=== PATIENT | male | born 1960 | race Caucasian/White ===

== ENCOUNTER 2017-12-22 03:57 | Emergency (ER) | payer BC ==
[2017-12-22] MEDS ORDERED: Ketorolac INJ* 30 MG/ML 1 ML VIAL IV PUSH ONE (04:12)
[2017-12-22] MEDS ORDERED: Aspirin 81 mg CHEW TAB* 81 MG TAB.CHEW PO ONE (04:12)
[2017-12-22] MEDS ORDERED: Ondansetron INJ* 2 MG/ML VIAL IV ONE (04:30)
[2017-12-22] MEDS ORDERED: Morphine INJ* 4 MG/ML 1 ML SYRINGE (NEW SYRINGE VERSION) IV ONE (04:30)
[2017-12-22 04:34] LABS: ABS Basophils 0 10^3/ul (0-0.2); ABS Eosinophils 0.4 10^3/ul (0-0.6); ABS Lymphocytes 2.9 10^3/ul (1.0-4.8); ABS Monocytes 0.4 10^3/ul (0-0.8); ABS Nucleated RBC 0 10^3/ul; Eosinophil % 6.7 % (0-6); Hematocrit 44 % (42-52); Hemoglobin 14.7 g/dl (14.0-18.0); Lymphocyte % 51.5 % (25-47); Mean Corpuscular HGB Conc 34 g/dl (31-36); Mean Corpuscular Hemoglobin 30 pg (27-31); Mean Corpuscular Volume 89 fL (80-94); Mean Platelet Volume 7.4 um3 (7.4-10.4); Nucleated Red Blood Cells % 0.1; Platelet Count 192 10^3/ul (150-450); Red Blood Count 4.95 10^6/ul (4.00-5.40); Red Cell Distribution Width 13 % (10.5-15); White Blood Count 5.7 10^3/ul (3.5-10.8)
[2017-12-22] MEDS ORDERED: fentaNYL* 50 MCG/ML 2 ML VIAL (100 MCG VIAL) ONE (04:47)
[2017-12-22] MEDS ORDERED: fentaNYL* 50 MCG/ML 2 ML VIAL (100 MCG VIAL) IV SLOW PU ONE ×2 (04:47→05:55)
[2017-12-22 04:51] LABS: EGFR Non-African American 72.3 (>60)
[2017-12-22 04:52] LABS: INR 0.89 (0.77-1.02)
[2017-12-22] MEDS ORDERED: Iohexol 350* (CONTRAST) 500 ML MDV IV ONE (05:04)
--- NOTE | 2017-12-22 05:12 | ED ---
HPI Chest Pain - HPI Summary HPI Summary: A 57 y/o Male presents to the ED c/o CP. He woke up in pain at around 3:30. He had difficulty walking to his car feeling SOB. His pain is currently better but is still present. Standing up alleviates his pain. He denies burping, coughing or fever. He leads and active lifestyle but has a FHx of IA. The patient does not take any medication. While in the room his HR was 40bpm. - History of Current Complaint Chief Complaint: EDChestWallPain Time Seen by Provider: 12/22/17 04:03 Hx Obtained From: Patient, Family/Negative [place] Onset/Duration: Started Hours Ago, Still Present Timing: Constant, Lasting Minutes Initial Severity: Moderate Current Severity: Moderate Pain Intensity: 8 Pain Scale Used: 0-10 Numeric Alleviating Factor(s): Position - Allergy/Home Medications Allergies/Adverse Reactions: Allergies Allergy/AdvReac Type Severity Reaction Status Date / Time No Known Allergies Allergy Verified 12/22/17 04:17 PMH/Surg Hx/FS Hx/Imm Hx Endocrine/Hematology History: Denies: Hx Diabetes Cardiovascular History: Denies: Hx Hypertension History: Denies: Hx Renal Disease EENT History: Denies: Hx Deafness Infectious Disease History: No Infectious Disease History: Denies: Traveled Outside the [place] in Last 30 Days - Family History Known Family History: Positive: Cardiac Disease Negative: Hypertension, Diabetes - Social History Alcohol Use: None Substance Use Type: Reports: None Smoking Status (MU): Never Smoked Tobacco Review of Systems Negative: Fever Positive: Chest Pain Positive: Shortness Of Breath. Negative: Cough Gastrointestinal: Negative - burping All Other Systems Reviewed And Are Negative: Yes Physical Exam - Summary Physical Exam Summary: VITAL SIGNS: Reviewed. GENERAL: Patient is a well-developed and nourished MALE who is lying comfortable in the stretcher. Patient is not in any acute respiratory distress. HEAD AND FACE: No signs of trauma. No ecchymosis, hematomas or skull depressions. No sinus tenderness. EYES: PERRLA, EOMI x 2, No injected conjunctiva, no nystagmus. EARS: Hearing grossly intact. Ear canals and tympanic membranes are within normal limits. MOUTH: Oropharynx within normal limits. NECK: Supple, trachea is midline, no adenopathy, no JVD, no carotid bruit, no c- spine tenderness, neck with full ROM. CHEST: Symmetric, no tenderness at palpation LUNGS: Clear to auscultation bilaterally. No wheezing or crackles. CVS: Regular rate and rhythm, S1 and S2 present, no murmurs or gallops appreciated. ABDOMEN: Soft, non-tender. No signs of distention. No rebound no guarding, and no masses palpated. Bowel sounds are normal. EXTREMITIES: FROM in all major joints, no edema, no cyanosis or clubbing. NEURO: Alert and oriented x 3. No acute neurological deficits. Speech is normal and follows commands. SKIN: Dry and warm Triage Information Reviewed: Yes Vital Signs On Initial Exam: Initial Vitals Temp Pulse Resp BP Pulse Ox 97.8 F 40 22 135/76 100 12/22/17 03:58 12/22/17 03:58 12/22/17 03:58 12/22/17 03:58 12/22/17 03:58 Vital Signs Reviewed: Yes Diagnostics - Vital Signs Vital Signs Temp Pulse Resp BP Pulse Ox 12/22/17 05:00 44 12 96 12/22/17 04:52 43 16 114/71 98 12/22/17 04:50 20 12/22/17 04:34 20 12/22/17 04:25 98 12/22/17 04:08 52 16 138/79 99 12/22/17 04:06 44 99 12/22/17 03:58 97.8 F 40 22 135/76 100 - Laboratory Lab Results: Lab Results 12/22/17 12/22/17 12/22/17 Range/Units 04:24 04:24 04:24 WBC 5.7 (3.5-10.8) 10^3/ul RBC 4.95 (4.00-5.40) 10^6/ul Hgb 14.7 (14.0-18.0) g/dl Hct 44 (42-52) % MCV 89 (80-94) fL MCH 30 (27-31) pg MCHC 34 (31-36) g/dl RDW 13 (10.5-15) % Plt Count 192 (150-450) 10^3/ul MPV 7.4 (7.4-10.4) um3 Neut % (Auto) 34.7 L (38-83) % Lymph % (Auto) 51.5 H (25-47) % [place] % (Auto) 6.8 (0-7) % Eos % (Auto) 6.7 H (0-6) % Baso % (Auto) 0.3 (0-2) % Absolute Neuts (auto) 2.0 (1.5-7.7) 10^3/ul Absolute Lymphs (auto) 2.9 (1.0-4.8) 10^3/ul Absolute Monos (auto) 0.4 (0-0.8) 10^3/ul Absolute Eos (auto) 0.4 (0-0.6) 10^3/ul Absolute Basos (auto) 0 (0-0.2) 10^3/ul Absolute Nucleated RBC 0 10^3/ul Nucleated RBC % 0.1 INR (Anticoag Therapy) (0.77-1.02) APTT (26.0-36.3) seconds D-Dimer, Quantitative (Less Than 230) ng/mL Sodium 140 (135-145) mmol/L Potassium 3.9 (3.5-5.0) mmol/L Chloride 104 (101-111) mmol/L Carbon Dioxide 30 (22-32) mmol/L Anion Gap 6 (2-11) mmol/L BUN 19 (6-24) mg/dL Creatinine 1.05 (0.67-1.17) mg/dL Est GFR ( Amer) 87.5 (>60) Est GFR (Non-Af Amer) 72.3 (>60) BUN/Creatinine Ratio 18.1 (8-20) Glucose 133 H (70-100) mg/dL Lactic Acid 0.8 (0.5-2.0) mmol/L Calcium 8.9 (8.6-10.3) mg/dL Magnesium 2.1 (1.9-2.7) mg/dL Total Bilirubin 0.40 (0.2-1.0) mg/dL AST 21 (13-39) U/L ALT 18 (7-52) U/L Alkaline Phosphatase 55 (34-104) U/L Total Creatine Kinase 173 (10-223) U/L CK-MB (CK-2) 1.7 (0.6-6.3) ng/mL Troponin I 0.00 (<0.04) ng/mL C-Reactive Protein Pending B-Natriuretic Peptide ( - 100) pg/mL Total Protein 6.3 L (6.4-8.9) g/dL Albumin 3.8 (3.2-5.2) g/dL Globulin 2.5 (2-4) g/dL Albumin/Globulin Ratio 1.5 (1-3) Amylase Pending Lipase Pending 12/22/17 12/22/17 Range/Units 04:24 04:24 WBC (3.5-10.8) 10^3/ul RBC (4.00-5.40) 10^6/ul Hgb (14.0-18.0) g/dl Hct (42-52) % MCV (80-94) fL MCH (27-31) pg MCHC (31-36) g/dl RDW (10.5-15) % Plt Count (150-450) 10^3/ul MPV (7.4-10.4) um3 Neut % (Auto) (38-83) % Lymph % (Auto) (25-47) % [place] % (Auto) (0-7) % Eos % (Auto) (0-6) % Baso % (Auto) (0-2) % Absolute Neuts (auto) (1.5-7.7) 10^3/ul Absolute Lymphs (auto) (1.0-4.8) 10^3/ul Absolute Monos (auto) (0-0.8) 10^3/ul Absolute Eos (auto) (0-0.6) 10^3/ul Absolute Basos (auto) (0-0.2) 10^3/ul Absolute Nucleated RBC 10^3/ul Nucleated RBC % INR (Anticoag Therapy) 0.89 (0.77-1.02) APTT 27.9 (26.0-36.3) seconds D-Dimer, Quantitative < 200 (Less Than 230) ng/mL Sodium (135-145) mmol/L Potassium (3.5-5.0) mmol/L Chloride (101-111) mmol/L Carbon Dioxide (22-32) mmol/L Anion Gap (2-11) mmol/L BUN (6-24) mg/dL Creatinine (0.67-1.17) mg/dL Est GFR ( Amer) (>60) Est GFR (Non-Af Amer) (>60) BUN/Creatinine Ratio (8-20) Glucose (70-100) mg/dL Lactic Acid (0.5-2.0) mmol/L Calcium (8.6-10.3) mg/dL Magnesium (1.9-2.7) mg/dL Total Bilirubin (0.2-1.0) mg/dL AST (13-39) U/L ALT (7-52) U/L Alkaline Phosphatase (34-104) U/L Total Creatine Kinase (10-223) U/L CK-MB (CK-2) (0.6-6.3) ng/mL Troponin I (<0.04) ng/mL C-Reactive Protein B-Natriuretic Peptide 21 ( - 100) pg/mL Total Protein (6.4-8.9) g/dL Albumin (3.2-5.2) g/dL Globulin (2-4) g/dL Albumin/Globulin Ratio (1-3) Amylase Lipase Result Diagrams: 12/22/17 04:24 12/22/17 04:24 Lab Statement: Any lab studies that have been ordered have been reviewed, and results considered in the medical decision making process. - Radiology CXR Xray Interpretation: Positive (See Comments) Radiology Interpretation Completed By: ED Physician - Small pleural effusion on the left side. Pending official report. - EKG 4:02 Cardiac Rate: Bradycardia - 40 bpm EKG Rhythm: Sinus Bradycardia ST Segment: Normal EKG Interpretation: Normal axis. Normal interval. No ischemic changes. Re-Evaluation - Re-Evaluation First Eval Re-Evaluation Time: 04:47 Change: Worse Comment: Tenderness from LUQ to LLQ Chest Pain Course/Dx - Course Course Of Treatment: A 57 y/o Male presents to the ED c/o CP. He woke up in pain at around 3:30. He had difficulty walking to his car feeling SOB. His pain is currently better but is still present. Standing up alleviates his pain. He denies burping, coughing or fever. He leads and active lifestyle but has a FHx of IA. The patient does not take any medication. EKG revealed sinus bradycardia at 40 bpm. The CXR revealed a small pleural effusion on the left side. Pt will be signed out to Dr. Ahn at shift change. Has a final diagnosis of CP and abd pain. Pending CTA and troponin. - Diagnoses Provider Diagnoses: Chest pain, Abdominal pain Discharge - Sign-Out/Discharge Documenting (check all that apply): Sign-Out Patient Signing out patient TO: Marek Ahn - Discharge Plan Referrals: Chandu Wilson MD [Primary Care Provider] - - Attestation Statements Document Initiated by Scribe: Yes Documenting Scribe: Ancelmo Hurley Provider For Whom Scribe is Documenting (Include Credential): Nery Barrera MD Scribe Attestation: IAncelmo, scribed for Nery Barrera MD on 12/22/17 at 0644.
[2017-12-22 06:54] LABS: Urine Appearance Cloudy; Urine Blood Negative (Negative); Urine Color Yellow; Urine Ketones Negative (Negative); Urine Protein Negative (Negative); Urine Specific Gravity 1.045 (1.010-1.030); Urine Urobilinogen Negative (Negative)
--- NOTE | 2017-12-22 07:02 | RAD ---
EXAM: CT Angiography Chest With Intravenous Contrast CLINICAL HISTORY: 57 years old, male; Pain; Chest wall pain; Abdominal pain; Localized; Left upper quadrant (luq); Additional info: Pe/abd pain TECHNIQUE: Axial computed tomographic angiography images of the chest with intravenous contrast using pulmonary embolism protocol. All CT scans at this facility use at least one of these dose optimization techniques: automated exposure control; mA and/or kV adjustment per patient size (includes targeted exams where dose is matched to clinical indication); or iterative reconstruction. MIP reconstructed images were created and reviewed. Coronal and sagittal reformatted images were created and reviewed. CONTRAST: 100 mL of OMNI 350 administered intravenously. COMPARISON: No relevant prior studies available. FINDINGS: Pulmonary arteries: No acute pulmonary embolic disease. Aorta: No acute findings. No thoracic aortic aneurysm. Lungs: No bony consolidation. Linear opacities located in the dependent portions of lung which may resent areas of atelectasis or scarring. Pleural space: No pneumothorax or pleural effusion. Heart: The heart is of normal size. No pericardial thickening or effusion. No evidence of right heart strain. Bones/joints: No evidence of a thoracic aneurysm or dissection. Thoracic cage is intact. Spondylotic changes of the thoracic spine. No evidence of fracture or dislocation. Soft tissues: Unremarkable. Lymph nodes: No mediastinal or hilar adenopathy. IMPRESSION: No acute findings. EXAM: CT Angiography Chest With Intravenous Contrast CT Angiography Abdomen and Pelvis With Intravenous Contrast CLINICAL HISTORY: 57 years old, male; Pain; Chest wall pain; Abdominal pain; Localized; Left upper quadrant (luq); Additional info: Pe/abd pain TECHNIQUE: Axial computed tomographic angiography images of the chest, abdomen and pelvis with intravenous contrast using CT angiography protocol. All CT scans at this facility use at least one of these dose optimization techniques: automated exposure control; mA and/or kV adjustment per patient size (includes targeted exams where dose is matched to clinical indication); or iterative reconstruction. MIP reconstructed images were created and reviewed. Coronal and sagittal reformatted images were created and reviewed. CONTRAST: 100 mL of OMNI 350 administered intravenously. 100 mL of OMNI 350 administered intravenously. COMPARISON: No relevant prior studies available. FINDINGS: VASCULATURE: Aorta: Calcification of the wall of the abdominal aorta and iliac arteries. No aneurysmal dilatation. No dissection. Pulmonary arteries: Unremarkable as visualized. No pulmonary embolism is identified. Great vessels of aortic arch: No acute findings. No dissection. No arterial occlusion or significant stenosis. Celiac trunk and mesenteric arteries: No acute findings. No occlusion or significant stenosis. Renal arteries: No acute findings. No occlusion or significant stenosis. Iliac arteries: See above. CHEST: Lungs: Unremarkable. No mass. No consolidation. Pleural space: Unremarkable. No significant effusion. No pneumothorax. Heart: Unremarkable. No cardiomegaly. No significant pericardial effusion. ABDOMEN: Liver: The liver is of normal size. Small focal hypodensities scattered throughout the right and left lobe liver. Largest lesion is in the left lobe of liver this measures approximately 1.2 in diameter the density is approximately 6 ounces still demonstrated this most likely represents a cyst. The other smaller focal hyperdensities probably represents a similar process. Gallbladder and bile ducts: Unremarkable. No calcified stones. No ductal dilation. Pancreas: Unremarkable. No ductal dilation. No mass. Spleen: The spleen is of normal size and appearance. Adrenals: The adrenal glands are normal. Kidneys and ureters: Kidneys are of normal size. No hydronephrosis. Small renal cortical cysts involving the right kidney. This measures approximate 8 mm in greatest dimension. No solid mass. Stomach and bowel: No bowel obstruction. No abnormal bowel wall thickening. PELVIS: Appendix: No findings to suggest acute appendicitis. Bladder: Unremarkable. No mass. Reproductive: Unremarkable as visualized. CHEST, ABDOMEN and PELVIS: Intraperitoneal space: Unremarkable. No significant fluid collection. No free air. Bones/joints: No acute fracture. No dislocation. Soft tissues: Unremarkable. Lymph nodes: Unremarkable. No enlarged lymph nodes. IMPRESSION: No acute findings. To contact [facility] with a general question: Operations Center - [phone] For direct physician to physician contact: Physician Hotline - [phone] [facility] ([facility] Facility ID #[id number])
--- NOTE | 2017-12-22 07:15 | ED ---
Progress - Progress Note Progress Note: This pt was signed out by Dr. Barrera at shift change, pending disposition, awaiting CTA chest/abdomen/pelvis and second troponin. CTA Chest/Abdomen/Pelvis, as read by radiologist IMPRESSION: No acute findings. Dr. Ahn has reviewed this report. Re-Evaluation - Re-Evaluation First Eval Re-Evaluation Time: 07:57 Comment: I discussed CTA and lab results with pt. He will be discharged home. Course/Dx - Course Course Of Treatment: This patient is a 57-year-old male who was signed out from Dr. Barrera the previous ER attending. He reports that the patient came in with left-sided chest pain and left upper quadrant pain. Blood test results without any significant abnormality except for glucose of 133, total protein 6.3, troponin 0.00, urinalysis negative for UTI. Dr. Barrera ordered a CTA of the chest, abdomen and pelvis. Impression is negative for an acute pathology. Therefore he recommended to wait for the second troponin and if the second troponin is negative the patient can be discharged home with follow-up from PCP. Patient continues to be hemodynamically stable, alert and oriented 3. He has received already 150 g of fentanyl, Toradol and morphine 4 mg IV. Second troponin is also 0.00. As instructed by Dr. Barrera the patient will be discharged home with follow-up from his primary care physician. I discussed all the findings and test results with the patient. Patient was instructed to return to the emergency room immediately if any of the symptoms return or worsens. Plan of care was discussed with the patient and he understands and agrees. All questions were answered at patient satisfaction. There were no further complaints or concerns. Lung exam before discharge: CTA B/L. Good air exchange. No wheezing or crackles heard. CVS: S1 and S2 present. No murmurs appreciated. Patient is alert and oriented x 3. Patient is hemodynamically stable. Patient will be discharged home with follow up from PCP in the next 2-3 days. - Diagnoses Provider Diagnoses: Chest pain Discharge - Sign-Out/Discharge Documenting (check all that apply): Patient Departure - Discharge home, Receiving Sign-Out Receiving patient FROM: Nery Barrera - Discharge Plan Condition: Stable Disposition: HOME Patient Education Materials: Chest Pain (ED) Referrals: Chandu Wilson MD [Primary Care Provider] - Additional Instructions: Follow up with your primary care provider in 2-3 days. RETURN TO THE ED FOR ANY NEW OR WORSENING SYMPTOMS. - Attestation Statements Document Initiated by Scribe: Yes Documenting Scribe: Goldie Cedillo Provider For Whom Scribe is Documenting (Include Credential): Marek Ahn MD Scribe Attestation: Goldie Landa, scribed for Marek Ahn MD on 12/22/17 at 0830.
[2017-12-22 08:07] VITALS: BP 113/71
--- NOTE | 2017-12-22 08:29 | RAD ---
HISTORY: CP COMPARISONS: None VIEWS: 1: frontal AP view of the chest at 4:35 AM FINDINGS: LINES AND TUBES: None. CARDIOMEDIASTINAL SILHOUETTE: The cardiomediastinal silhouette is normal for portable technique. PLEURA: The costophrenic angles are sharp. No pleural abnormalities are noted. LUNG PARENCHYMA: The lungs are clear. ABDOMEN: The upper abdomen is clear. There is no subphrenic gas. BONES AND SOFT TISSUES: No bone or soft tissue abnormalities are noted. IMPRESSION: NO ACTIVE CARDIOPULMONARY DISEASE. R1
== END 2017-12-22 08:06 | disposition home or self-care (01) ==
LOC: ED 03:57
DX: R07.9 Chest pain, unspecified (principal); R06.02 Shortness of breath; R10.9 Unspecified abdominal pain
CPT/HCPCS: 36415; 71045; 71275; 74177; 80053; 81003; 82150; 82550; 82553; 83605; 83690; 83735; 83880; 84484; 85025; 85379; 85610; 85730; 86140; 93005; 96374; 96375; 96376; 99283; A9270-GY; J1885; J2270; J2405; J3010; Q9967

== ENCOUNTER 2018-10-27 21:33 | Emergency (ER) | payer BC ==
[2018-10-27 21:48] VITALS: BP 114/66
[2018-10-27] MEDS ORDERED: Sulfamethox/Trimethoprim DS 800/160* TAB PO ONE (21:54)
--- NOTE | 2018-10-27 21:54 | UC ---
Skin Complaint HPI - HPI Summary HPI Summary: reddness around right eye for 2 days not much relief with Benadryl, no fevers feels constitutionally well, - History of Current Complaint Chief Complaint: UCRash Time Seen by Provider: 10/27/18 21:50 Stated Complaint: RT EYE ISSUE Hx Obtained From: Patient Onset/Duration: Sudden Onset, Lasting Days - 2, Still Present Skin Exposure Onset/Duration: Minutes Ago - 2 Timing: Constant Onset Severity: Mild Current Severity: Moderate Pain Intensity: 0 Pain Scale Used: 0-10 Numeric Location: Discrete - around right eye Character: Redness Aggravating Factor(s): Nothing Alleviating Factor(s): Nothing Associated Signs & Symptoms: Negative: Red Streaks Related History: Insect Bite/Sting - ?? - Allergy/Home Medications Allergies/Adverse Reactions: Allergies Allergy/AdvReac Type Severity Reaction Status Date / Time No Known Allergies Allergy Verified 10/27/18 21:46 Home Medications: Home Medications diPHENhydraMINE PO* [Benadryl PO 25 MG TAB*] 25 mg PO Q6HR PRN 10/27/18 [ History Confirmed 10/27/18] PMH/Surg Hx/FS Hx/Imm Hx Previously Healthy: Yes - Surgical History Surgical History: None - Family History Known Family History: Positive: Cardiac Disease Negative: Hypertension, Diabetes - Social History Occupation: Employed Full-time, Retired Lives: With Family Alcohol Use: None Substance Use Type: None Smoking Status (MU): Never Smoked Tobacco Review of Systems All Other Systems Reviewed And Are Negative: Yes Constitutional: Positive: Negative Skin: Positive: Other - erythem and swelling around right eye Eyes: Positive: Negative ENT: Positive: Negative Respiratory: Positive: Negative Cardiovascular: Positive: Negative Gastrointestinal: Positive: Negative Genitourinary: Positive: Negative Motor: Positive: Negative Neurovascular: Positive: Negative Musculoskeletal: Positive: Negative Neurological: Positive: Negative Psychological: Positive: Negative Is Patient Immunocompromised?: No Physical Exam Triage Information Reviewed: Yes Appearance: Well-Appearing, No Pain Distress, Well-Nourished Vital Signs Reviewed: Yes Eye Exam: Normal Eyes: Positive: Conjunctiva Clear, Other: - perrla, eomi, not painful ENT Exam: Normal ENT: Positive: Normal ENT inspection, Hearing grossly normal, Pharynx normal, TMs normal, Uvula midline. Negative: Nasal congestion, Trismus, Muffled voice, Hoarse voice, Dental tenderness, Sinus tenderness Dental Exam: Normal Neck exam: Normal Neck: Positive: Supple, Nontender, No Lymphadenopathy Respiratory Exam: Normal Respiratory: Positive: Chest non-tender, Lungs clear, Normal breath sounds, No respiratory distress, No accessory muscle use Cardiovascular Exam: Normal Cardiovascular: Positive: RRR, No Murmur, Pulses Normal, Brisk Capillary Refill Musculoskeletal Exam: Normal Musculoskeletal: Positive: Strength Intact, ROM Intact, No Edema Neurological Exam: Normal Neurological: Positive: Alert, Muscle Tone Normal Psychological Exam: Normal Skin Exam: Other Skin: Positive: Other - erythema Course/Dx - Course Course Of Treatment: cool compresses, Benadryl, Bactrim follow with pcp this week or to ED should symptoms worsen in any way - Diagnoses Provider Diagnosis: Cellulitis of face, Insect bite Discharge - Sign-Out/Discharge Documenting (check all that apply): Patient Departure All imaging exams completed and their final reports reviewed: No Studies - Discharge Plan Condition: Stable Disposition: HOME Patient Education Materials: Cellulitis (DC), Insect Bite or Sting (ED) Referrals: Chandu Wilson MD [Primary Care Provider] - If Needed - Billing Disposition and Condition Condition: STABLE Disposition: Home
--- OUTSIDE RECORDS SUMMARY | 2018-10-28 01:13 | XMS REPORT | Continuity of Care Document ---
:1960 External Reference #:[id number] Author Name Chandu Wilson MD Address [address] [facility] [place] [address] Care Team Providers Name Role Phone Chandu Wilson MD FACP Primary Care Physician Unavailable Payers Date Identification Numbers Payment Provider Subscriber Effective: 2009 Policy Number: [id number] [employer] [place] Expires: 2011 PayID: [id number] [address] [address] [place] [address] Expires: 2009 Policy Number: [id number] [employer] [place] PayID: [id number] [address] [address] [place] [address] Effective: 2009 Policy Number: [id number] [employer] [place] Expires: 2010 PayID: [id number] [address] [address] [place] [address] Effective: 2011 Policy Number: [id number] [employer] [place] Expires: 2016 PayID: [id number] [address] [address] [place] [address] Effective: 2016 Policy Number: [id number] [employer] [place] PayID: [id number] [address] [address] [place] [address] Problems Active Problems Provider Date Impaired fasting glycaemia Chandu Wilson MD Onset: 12/03/2011 FH: Myocardial infarct in 1st degree male Chandu Wilson MD Onset: 2017 relative <55 years Inactive Problems Pure hypercholesterolemia Chandu Wilson MD Onset: 03/03/2010 Inactive: 07/28/2017 Family History Date Family Member(s) Observation Comments General Adopted Never Adopted just put in foster care Onset: (age 6 General Adopted By Mr. Okeefe after Years) his parents . General Hypercholesterolemia Parents and brothers General Diabetes Sister : (age Father due to [place] Smoker, ETOH use and 52 Years) poor lifestyle. Father Hypercholesterolemia Mother Hypercholesterolemia : (age Mother due to Ovarian Cancer 35 Years) Social History Type Date Description Comments Sex Unknown Marital Status One son Occupation Real estate Occupation Business [employer] Tobacco Use Start: Unknown Never Smoked Cigarettes ETOH Use Denies alcohol use Recreational Drug Use Never Used Drugs Tobacco Use Start: Unknown Patient has never smoked Exercise Type/Frequency Exercises regularly 1-2 mile walk / bike, lifts weights 6/week. "I am physically very active all day" Allergies, Adverse Reactions, Alerts Description No Known Drug Allergies Medications Active Medications SIG Qnty Indications Ordering Provider Date Aspirin take 1 tablet by Z82.49 Chandu Rm 06/01/2012 81mg Tablets mouth daily to MD Katie prevent blood clotting Multivitamins 1 by mouth every Unknown Tablets day History Medications Transderm-Scop (1.5 apply 1 patch to 7units T75.3xxA Schofield A 2017 - MG) hairless area behind MD Katie 12/22/2017 1mg/3Days Patches ear every 3 days, as 72HR needed. Prevnar 13 administer half a 1units Z00.01 Chandu A 07/28/2017 - milliliters MD Katie 12/22/2017 Suspension intramuscularly one time for inactivated vaccination to prevent pneumococcal infection Shingrix one intramuscular 1units Z00.01 Schofield A 07/28/2017 - 50mcg dose now and repeat MD Katie 12/22/2017 Suspension Rec 2nd dose after 2-6 months. Prilosec OTC 1 by mouth every day K21.0 Ramo, 07/20/2016 - 20mg MD Foster 07/20/2016 Tablets Simvastatin take 1 tablet by 30tabs E78.0 Chandu Rm 12/06/2012 - 10mg mouth at bedtime MD Katie 01/25/2014 Tablets Z82.49 Simvastatin take 1 tablet by 24tabs 272.0 Chandu Rm 01/18/2012 - 20mg mouth twice a week in MD Katie 12/06/2012 Tablets the evening for hyperlipidemia Simvastatin take 1 tablet by 90tabs E78.0 Schofield A 06/02/2011 - 20mg mouth daily in the MD Katie 01/18/2012 Tablets evening for hyperlipidemia Simvastatin 1 po qhs 90tabs E78.0 Chandu Rm 03/13/2010 - 40mg MD Katie 06/02/2011 Tablets Immunizations CPT Code Status Date Vaccine Lot # [id number] Given 01/21/2018 Shingrix (Shingles) Vaccine [id number] Given 09/14/2017 Shingrix (Shingles) Vaccine 41148 Given 09/14/2017 Prevnar (Pneumonia) 13 Vaccine 17568 Given 12/03/2011 Tdap-Tetanus, Diphtheria Toxoids/Acellular TDAP [id number] Pertussis Vaccine 7+ [id number] Given 06/14/2007 Tetanus Preservative Free For Use In Individuals 7 Yrs Or Older 68996 Refused 01/25/2014 Influenza Virus Split 3 Yrs And Above For Intramuscular Use 14458 Refused 12/06/2012 Influenza Virus Split 3 Yrs And Above For Intramuscular Use 64976 Refused 12/03/2011 Influenza Virus Split 3 Yrs And Above For Intramuscular Use 59073 Refused 03/03/2010 Influenza Virus Split 3 Yrs And Above For Intramuscular Use 92357 Refused 12/04/2009 Influenza Virus Split 3 Yrs And Above For Intramuscular Use Vital Signs Date Vital Result Comment 10/11/2018 8:46am Body Temperature 97.5 F O2 % BldC Oximetry 95 % Heart Rate 66 /min BP Systolic 118 mmHg BP Diastolic 70 mmHg Weight 207.00 lb 08/11/2018 3:55pm Body Temperature 97.8 F O2 % BldC Oximetry 95 % Heart Rate 58 /min BP Systolic 115 mmHg BP Diastolic 70 mmHg BMI (Body Mass Index) 29.5 kg/m2 Weight 213.00 lb Height 71.25 inches 5'11.25" 01/26/2018 10:38am Heart Rate 60 /min BP Systolic 115 mmHg BP Diastolic 75 mmHg BMI (Body Mass Index) 30.6 kg/m2 Weight 226.00 lb Height 72 inches 6'0" 12/22/2017 2:16pm Body Temperature 98.1 F 07/28/2017 10:01am Body Temperature 98.0 F O2 % BldC Oximetry 96 % Heart Rate 95 /min BP Systolic 120 mmHg BP Diastolic 80 mmHg BMI (Body Mass Index) 30.8 kg/m2 Weight 227.00 lb Height 72 inches 6'0" 06/02/2017 2:50pm Heart Rate 56 /min BP Systolic 125 mmHg BP Diastolic 80 mmHg Weight 235.00 lb 05/12/2017 11:43am Body Temperature 97.9 F O2 % BldC Oximetry 97 % Heart Rate 65 /min BP Systolic 122 mmHg BP Diastolic 70 mmHg Weight 238.00 lb 08/03/2016 10:08am Body Temperature 97.7 F Heart Rate 64 /min BP Systolic 105 mmHg BP Diastolic 70 mmHg BMI (Body Mass Index) 29.7 kg/m2 Weight 219.00 lb Height 72 inches 6'0" 07/31/2015 10:50am O2 % BldC Oximetry 97 % Heart Rate 51 /min BP Systolic 110 mmHg BP Diastolic 70 mmHg BMI (Body Mass Index) 29.7 kg/m2 Weight 219.00 lb Height 72 inches 6'0" 07/26/2014 11:19am O2 % BldC Oximetry 98 % Heart Rate 52 /min BP Systolic 105 mmHg BP Diastolic 70 mmHg BMI (Body Mass Index) 28.9 kg/m2 Weight 213.00 lb Height 72 inches 6'0" 01/25/2014 3:03pm Body Temperature 98.2 F O2 % BldC Oximetry 98 % Heart Rate 51 /min BP Systolic 110 mmHg BP Diastolic 70 mmHg BMI (Body Mass Index) 31.2 kg/m2 Weight 230.00 lb in office, clothed, with shoes Height 72 inches 6'0" 07/17/2013 3:05pm Body Temperature 97.6 F O2 % BldC Oximetry 97 % Heart Rate 59 /min BP Systolic 115 mmHg BP Diastolic 75 mmHg BMI (Body Mass Index) 31.9 kg/m2 Weight 235.00 lb with shoes Height 72 inches 6'0" 06/05/2013 9:59am Body Temperature 98.5 F O2 % BldC Oximetry 95 % Ra, AT Rest Heart Rate 60 /min BP Systolic 110 mmHg BP Diastolic 70 mmHg BMI (Body Mass Index) 32.1 kg/m2 Weight 237.00 lb with shoes Height 72 inches 6'0" 12/06/2012 10:01am Body Temperature 97.9 F O2 % BldC Oximetry 98 % Ra, AT Rest Heart Rate 55 /min BP Systolic 105 mmHg BP Diastolic 65 mmHg BMI (Body Mass Index) 30.8 kg/m2 Weight 227.00 lb Height 72 inches 6'0" 06/01/2012 10:00am Heart Rate 54 /min No change with change in posture BP Systolic 110 mmHg Supine BP Diastolic 65 mmHg Supine BP Systolic Recheck 110 mmHg Standing BP Diastolic Recheck 65 mmHg Standing BMI (Body Mass Index) 31.9 kg/m2 Weight 235.00 lb with shoes Height 72 inches 6'0" 12/03/2011 9:55am Heart Rate 56 /min BP Systolic 110 mmHg BP Diastolic 75 mmHg BMI (Body Mass Index) 30.0 kg/m2 Weight 221.00 lb with shoes Height 72 inches 6'0" 06/02/2011 10:18am Heart Rate 60 /min BP Systolic 105 mmHg BP Diastolic 70 mmHg BMI (Body Mass Index) 29.8 kg/m2 Weight 220.00 lb Height 72 inches 6'0" 06/18/2010 10:02am Heart Rate 56 /min BP Systolic 110 mmHg BP Diastolic 70 mmHg BMI (Body Mass Index) 31.2 kg/m2 Weight 230.00 lb in office, clothed, with shoes Height 72 inches 6'0" 03/13/2010 10:59am Heart Rate 58 /min BP Systolic 110 mmHg BP Diastolic 70 mmHg BMI (Body Mass Index) 31.9 kg/m2 Weight 235.00 lb Height 72 inches 6'0" 03/03/2010 10:02am BMI (Body Mass Index) 32.8 kg/m2 Weight 242.00 lb Height 72 inches 6'0" 12/04/2009 11:15am BMI (Body Mass Index) 31.9 kg/m2 Weight 235.00 lb with shoes Height 72 inches 6'0" 01/09/2009 10:07am Body Temperature 97.6 F O2 % BldC Oximetry 97 % Heart Rate 80 /min BP Systolic 110 mmHg BP Diastolic 65 mmHg BMI (Body Mass Index) 30.6 kg/m2 Weight 226.00 lb Height 72 inches 6'0" Results Test Date Facility Test Result H/L Range Note Laboratory test 10/10/2018 [facility] C Reactive < 1.00 mg/L N <8.01 [place] [address] Protein [phone] CBC Auto Diff 10/10/2018 [facility] White Blood 5.6 10^3/uL N 3.5-10.8 [place] [address] Count [phone] Red Blood Count 4.93 10^6/uL N 4.18-5.48 Hemoglobin 14.8 g/dL N 14.0-18.0 Hematocrit 44 % N 42-52 Mean Corpuscular Volume 89 fL N 80-94 Mean Corpuscular Hemoglobin 30 pg N 27-31 Mean Corpuscular HGB Conc 34 g/dL N 31-36 Red Cell Distribution Width 13 % N 10-15 Platelet Count 210 10^3/uL N 150-450 Mean Platelet Volume 8.1 fL N 7.4-10.4 Abs Neutrophils 3.0 10^3/uL N 1.5-7.7 Abs Lymphocytes 2.2 10^3/uL N 1.0-4.8 Abs Monocytes 0.3 10^3/uL N 0-0.8 Abs Eosinophils 0.2 10^3/uL N 0-0.6 Abs Basophils 0.0 10^3/uL N 0-0.2 Abs Nucleated RBC 0.0 10^3/uL Granulocyte % 52.6 % Lymphocyte % 38.5 % Monocyte % 4.8 % Eosinophil % 3.6 % Basophil % 0.5 % Nucleated Red Blood Cells % 0.0 Laboratory test 10/10/2018 [facility] Erythrocyte Sed 8 mm/Hr N 0-19 [place] [address] Rate [phone] Lyme Screen w/ Reflex to WB Negative Negative CBC No Diff 08/09/2018 [facility] White Blood 4.7 10^3/uL N 3.5-10.8 [place] [address] Count [phone] Red Blood Count 5.13 10^6/uL N 4.18-5.48 Hemoglobin 15.2 g/dL N 14.0-18.0 Hematocrit 46 % N 42-52 Mean Corpuscular Volume 89 fL N 80-94 Mean Corpuscular Hemoglobin 30 pg N 27-31 Mean Corpuscular HGB Conc 33 g/dL N 31-36 Red Cell Distribution Width 14 % N 10.5-15 Platelet Count 205 10^3/uL N 150-450 Mean Platelet Volume 8.0 fL N 7.4-10.4 Comp Metabolic Panel 08/09/2018 [facility] Sodium 137 mmol/L N 135-145 [place], [place] [id number] [phone] Potassium 4.3 mmol/L N 3.5-5.0 Chloride 104 mmol/L N 101-111 Co2 Carbon Dioxide 28 mmol/L N 22-32 Anion Gap 5 mmol/L N 2-11 Glucose 99 mg/dL N 70-100 Blood Urea Nitrogen 23 mg/dL N 6-24 Creatinine 1.02 mg/dL N 0.67-1.17 BUN/Creatinine Ratio 22.5 High 8-20 Calcium 9.3 mg/dL N 8.6-10.3 Total Protein 6.6 g/dL N 6.4-8.9 Albumin 4.0 g/dL N 3.2-5.2 Globulin 2.6 g/dL N 2-4 Albumin/Globulin Ratio 1.5 N 1-3 Total Bilirubin 0.60 mg/dL N 0.2-1.0 Alkaline Phosphatase 60 U/L N 34-104 Alt 18 U/L N 7-52 Ast 21 U/L N 13-39 Egfr Non- 74.5 >60 Egfr 90.1 >60 1 Laboratory test 08/09/2018 [facility] Hemoglobin A1c 5.7 % High 4.0-5.6 2 [place] [address] (Glyco HGB) [phone] Lipid Profile 08/09/2018 [facility] Triglycerides 65 <150 3 (Trig/Chol/HDL) [place] [address] mg/dL [phone] Cholesterol 186 mg/dL <200 4 HDL Cholesterol 45.3 mg/dL >40 5 LDL Cholesterol 128 mg/dL <160 6 Lipid Profile 01/17/2018 [facility] Triglycerides 67 mg/dL < 150 7 (Trig/Chol/HDL) [place], [place] [id number] [phone] Cholesterol 179 mg/dL <200 8 HDL Cholesterol 41.4 mg/dL >40 9 LDL Cholesterol 124 mg/dL <130 10 Laboratory test 01/17/2018 [facility] CRP High 0.77 mg/L < 2.00 11 [place] [address] Sensitivity [phone] Glucose 109 mg/dL High 70-100 12 Hemoglobin A1c (Glyco HGB) 5.5 % N 4.0-5.6 13 Comp Metabolic Panel 12/22/2017 [facility] Sodium 140 mmol/L N 135-145 [place] [address] [phone] Potassium 3.9 mmol/L N 3.5-5.0 Chloride 104 mmol/L N 101-111 Co2 Carbon Dioxide 30 mmol/L N 22-32 Anion Gap 6 mmol/L N 2-11 Glucose 133 mg/dL High 70-100 Blood Urea Nitrogen 19 mg/dL N 6-24 Creatinine 1.05 mg/dL N 0.67-1.17 BUN/Creatinine Ratio 18.1 N 8-20 Calcium 8.9 mg/dL N 8.6-10.3 Total Protein 6.3 g/dL Low 6.4-8.9 Albumin 3.8 g/dL N 3.2-5.2 Globulin 2.5 g/dL N 2-4 Albumin/Globulin Ratio 1.5 N 1-3 Total Bilirubin 0.40 mg/dL N 0.2-1.0 Alkaline Phosphatase 55 U/L N 34-104 Alt 18 U/L N 7-52 Ast 21 U/L N 13-39 Egfr Non- 72.3 >60 Egfr 87.5 >60 14 Laboratory test 12/22/2017 [facility] Magnesium 2.1 mg/dL N 1.9-2.7 [place] [address] [phone] Creatine Kinase(CK) 173 U/L N 10-223 Troponin-I (TnI) 0.00 ng/mL <0.04 CKMB 12/22/2017 [facility] CKMB ng/mL 1.7 ng/mL N 0.6-6.3 [place], [place] [id number] [phone] Laboratory test 12/22/2017 [facility] Amylase 74 U/L N 29-103 [place] [address] [phone] Lipase 14 U/L N 11.0-82.0 C Reactive Protein 1.39 mg/L N <8.01 Lactic Acid 0.8 mmol/L N 0.5-2.0 15 B-Type Natriuretic Peptide BNP 21 pg/mL 16 Inr/Protime 12/22/2017 [facility] Inr 0.89 N 0.77-1.02 [place] [address] [phone] Laboratory test 12/22/2017 [facility] Partial 27.9 seconds N 26.0-36.3 [place] [address] Thrombo Time [phone] PTT D Dimer Quantitative < 200 ng/mL N Less Than 230 17 CBC Auto Diff 12/22/2017 [facility] White Blood 5.7 10^3/uL N 3.5-10.8 [place] [address] Count [phone] Red Blood Count 4.95 10^6/uL N 4.00-5.40 Hemoglobin 14.7 g/dL N 14.0-18.0 Hematocrit 44 % N 42-52 Mean Corpuscular Volume 89 fL N 80-94 Mean Corpuscular Hemoglobin 30 pg N 27-31 Mean Corpuscular HGB Conc 34 g/dL N 31-36 Red Cell Distribution Width 13 % N 10.5-15 Platelet Count 192 10^3/uL N 150-450 Mean Platelet Volume 7.4 um3 N 7.4-10.4 Abs Neutrophils 2.0 10^3/uL N 1.5-7.7 Abs Lymphocytes 2.9 10^3/uL N 1.0-4.8 Abs Monocytes 0.4 10^3/uL N 0-0.8 Abs Eosinophils 0.4 10^3/uL N 0-0.6 Abs Basophils 0 10^3/uL N 0-0.2 Abs Nucleated RBC 0 10^3/uL Granulocyte % 34.7 % Low 38-83 Lymphocyte % 51.5 % High 25-47 Monocyte % 6.8 % N 0-7 Eosinophil % 6.7 % High 0-6 Basophil % 0.3 % N 0-2 Nucleated Red Blood Cells % 0.1 Urinalysis Profile 12/22/2017 [facility] [place] [address] [phone] Urine Appearance Cloudy Urine Specific [place] 1.045 High 1.010-1.030 Urine pH 7.0 N 5-9 Urine Urobilinogen Negative Negative Urine Ketones Negative Negative Urine Protein Negative Negative Urine Leukocytes Negative Negative Urine Blood Negative Negative Urine Nitrite Negative Negative Urine Bilirubin Negative Negative Urine Glucose Negative Negative Laboratory test 12/22/2017 [facility] Troponin-I 0.00 ng/mL < 0.04 [place] [address] (TnI) [phone] CBC No Diff 07/22/2017 [facility] White Blood 4.4 N 3.5-10.8 [place] [address] Count 10^3/uL [phone] Red Blood Count 5.30 10^6/uL N 4.0-5.4 Hemoglobin 15.9 g/dL N 14.0-18.0 Hematocrit 47 % N 42-52 Mean Corpuscular Volume 88 fL N 80-94 Mean Corpuscular Hemoglobin 30 pg N 27-31 Mean Corpuscular HGB Conc 34 g/dL N 31-36 Red Cell Distribution Width 13 % N 10.5-15 Platelet Count 203 10^3/uL N 150-450 Mean Platelet Volume 7.6 um3 N 7.4-10.4 Basic Metabolic 07/22/2017 [facility] Sodium 137 mmol/L Low 139-145 Panel [place], [place] [id number] [phone] Potassium 5.0 mmol/L N 3.5-5.0 Chloride 106 mmol/L N 101-111 Co2 Carbon Dioxide 30 mmol/L N 22-32 Anion Gap 1 mmol/L Low 2-11 Glucose 100 mg/dL N 70-100 Blood Urea Nitrogen 20 mg/dL N 6-24 Creatinine 1.08 mg/dL N 0.67-1.17 BUN/Creatinine Ratio 18.5 N 8-20 Calcium 9.2 mg/dL N 8.6-10.3 Egfr Non- 70.2 >60 Egfr 90.3 >60 18 Lipid Profile 07/22/2017 [facility] Triglycerides 51 mg/dL < 150 19 (Trig/Chol/HDL) [place] [address] [phone] Cholesterol 189 mg/dL <200 20 HDL Cholesterol 44.5 mg/dL >40 21 LDL Cholesterol 134 mg/dL High <100 22 Order 06/02/2017 [facility] EKG SB [address] [place] [address] [phone] CBC No Diff 07/31/2016 [facility] White Blood 4.8 10^3/uL N 3.5-10.8 [place] [address] Count [phone] Red Blood Count 5.16 10^6/uL N 4.0-5.4 Hemoglobin 15.1 g/dL N 14.0-18.0 Hematocrit 45 % N 42-52 Mean Corpuscular Volume 87 fL N 80-94 Mean Corpuscular Hemoglobin 29 pg N 27-31 Mean Corpuscular HGB Conc 34 g/dL N 31-36 Red Cell Distribution Width 13 % N 10.5-15 Platelet Count 185 10^3/uL N 150-450 Mean Platelet Volume 8 um3 N 7.4-10.4 Basic Metabolic Panel 07/31/2016 [facility] Sodium 137 mmol/L N 133-145 [place], [place] [id number] [phone] Potassium 4.1 mmol/L N 3.5-5.0 Chloride 105 mmol/L N 101-111 Co2 Carbon Dioxide 27 mmol/L N 22-32 Anion Gap 5 mmol/L N 2-11 Glucose 97 mg/dL N 70-100 Blood Urea Nitrogen 20 mg/dL N 6-24 Creatinine 1.08 mg/dL N 0.67-1.17 BUN/Creatinine Ratio 18.5 N 8-20 Calcium 8.7 mg/dL N 8.6-10.3 Egfr Non- 70.2 N >60 Egfr 90.3 N >60 23 Lipid Profile 07/31/2016 [facility] Triglycerides 48 mg/dL N < 150 24 (Trig/Chol/HDL) [place], [place] [address] [phone] Cholesterol 167 mg/dL N <200 25 HDL Cholesterol 40.9 mg/dL N >40 26 LDL Cholesterol 117 mg/dL N <130 27 Laboratory test 07/31/2016 [facility] Hemoglobin A1c 5.7 % N Less than 28 [place] [address] (Glyco HGB) 6.0 [phone] PSA Screening 0.993 ng/mL N 0-4.000 29 Urinalysis Profile 07/31/2016 [facility] Urine Color Yellow N [place], [place] [id number] [phone] Urine Appearance Clear N Urine Specific [place] 1.014 N 1.010-1.030 Urine pH 6.0 N 5-9 Urine Urobilinogen Negative N Negative Urine Ketones Negative N Negative Urine Protein Negative N Negative Urine Leukocytes Negative N Negative Urine Blood Negative N Negative Urine Nitrite Negative N Negative Urine Bilirubin Negative N Negative Urine Glucose Negative N Negative Laboratory test 12/11/2015 [facility] Surgical SEE RESULT 30, 31 [place] [address] Interface BELOW [phone] Order CBC No Diff 07/22/2015 [facility] White Blood 3.8 10^3/uL N 3.5-1 [place] [address] Count 0.8 [phone] Red Blood Count 5.02 10^6/uL N 4.0-5.4 Hemoglobin 14.9 g/dL N 14.0-18.0 Hematocrit 45 % N 42-52 Mean Corpuscular Volume 89 fL N 80-94 Mean Corpuscular Hemoglobin 30 pg N 27-31 Mean Corpuscular HGB Conc 33 g/dL N 31-36 Red Cell Distribution Width 13 % N 10.5-15 Platelet Count 200 10^3/uL N 150-450 Mean Platelet Volume 8 um3 N 7.4-10.4 Comp Metabolic Panel 07/22/2015 [facility] Sodium 136 mmol/L N 133-145 [place] [address] [phone] Potassium 4.2 mmol/L N 3.5-5.0 Chloride 104 mmol/L N 101-111 Co2 Carbon Dioxide 28 mmol/L N 22-32 Anion Gap 4 mmol/L N 2-11 Glucose 100 mg/dL N 70-100 Blood Urea Nitrogen 24 mg/dL N 6-24 Creatinine 1.09 mg/dL N 0.67-1.17 BUN/Creatinine Ratio 22.0 High 8-20 Calcium 9.0 mg/dL N 8.6-10.3 Total Protein 6.6 g/dL N 6.4-8.9 Albumin 4.0 g/dL N 3.2-5.2 Globulin 2.6 g/dL N 2-4 Albumin/Globulin Ratio 1.5 N 1-3 Total Bilirubin 0.60 mg/dL N 0.2-1.0 Alkaline Phosphatase 44 U/L N 34-104 Alt 20 U/L N 7-52 Ast 24 U/L N 13-39 Egfr Non- 70.0 N >60 Egfr 90.0 N >60 32 Lipid Profile 07/22/2015 [facility] Triglycerides 48 mg/dL N < 150 33 (Trig/Chol/HDL) [place] [address] [phone] Cholesterol 190 mg/dL N <200 34 HDL Cholesterol 42.3 mg/dL N >35 35 LDL Cholesterol 138 mg/dL High <130 36 Laboratory 07/22/2015 [facility] Hepatitis C Nonreactive N [place] [address] Antibody [phone] Laboratory 07/20/2014 [facility] CRP High 0.80 mg/L N 37, [place] [address] Sensitivity 38 [phone] Lipid 07/20/2014 [facility] Triglycerides 55 mg/dL N 39 [place] [address] (Trig/Chol/H [phone] DL) Cholesterol 171 mg/dL N 40 HDL Cholesterol 38.4 mg/dL N 41 LDL Cholesterol 122 mg/dL N 42 Basic Metabolic Panel 07/20/2014 [facility] Sodium 136 mmol/L N 133-145 [place] [address] [phone] Potassium 4.3 mmol/L N 3.5-5.0 Chloride 103 mmol/L N 101-111 Co2 Carbon Dioxide 31 mmol/L N 22-32 Anion Gap 2 mmol/L N 2-11 Glucose 94 mg/dL N 70-100 Blood Urea Nitrogen 20 mg/dL N 6-24 Creatinine 1.04 mg/dL N 0.67-1.17 BUN/Creatinine Ratio 19.2 N 8-20 Calcium 9.1 mg/dL N 8.6-10.3 Egfr Non- 74.1 N >60 Egfr 95.4 N >60 43 Laboratory test 07/20/2014 [facility] Hemoglobin A1c 5.7 % N Less than 44 [place] [address] 6.0 [phone] CBC No Diff 01/22/2014 [facility] White Blood 6.0 N 4.8-10.8 [place] [address] Count 10^3/uL [phone] Red Blood Count 5.21 10^6/uL N 4.0-5.4 Hemoglobin 15.1 g/dL N 14.0-18.0 Hematocrit 47 % N 42-52 Mean Corpuscular Volume 90 fL N 80-94 Mean Corpuscular Hemoglobin 29 pg N 27-31 Mean Corpuscular HGB Conc 32 g/dL N 31-36 Red Cell Distribution Width 13 % N 10.5-15 Platelet Count 211 10^3/uL N 150-450 Mean Platelet Volume 8 um3 N 7.4-10.4 Comp Metabolic Panel 01/22/2014 [facility] Sodium 137 mmol/L N 133-145 [place] [address] [phone] Potassium 4.1 mmol/L N 3.5-5.0 45 Chloride 103 mmol/L N 101-111 Co2 Carbon Dioxide 30 mmol/L N 22-32 Anion Gap 4 mmol/L N 2-11 Glucose 100 mg/dL N 70-100 Blood Urea Nitrogen 17 mg/dL N 6-24 Creatinine 1.02 mg/dL N 0.67-1.17 BUN/Creatinine Ratio 16.7 N 8-20 Calcium 9.0 mg/dL N 8.6-10.3 Total Protein 6.9 g/dL N 6.4-8.9 Albumin 4.2 g/dL N 3.2-5.2 Globulin 2.7 g/dL N 2-4 Albumin/Globulin Ratio 1.6 N 1-3 Total Bilirubin 0.60 mg/dL N 0.2-1.0 Alkaline Phosphatase 55 U/L N 34-104 Alt 18 U/L N 7-52 Ast 21 U/L N 13-39 Egfr Non- 75.8 N >60 Egfr 97.5 N >60 46 Lipid Profile 01/22/2014 [facility] Triglycerides 80 mg/dL N 47 (Trig/Chol/HDL) [place] [address] [phone] Cholesterol 142 mg/dL N 48 HDL Cholesterol 36.0 mg/dL N 49 LDL Cholesterol 90 mg/dL N 50 Ua Routine 07/17/2013 [facility] Ua Specific [place] [address] [place] [address] [phone] Ua PH 6.0 Ua Color Light yellow Ua Appera Clear Ua WBC - Ua Protein - Ua Glucose - Ua Ketones - Ua Bilirubin - Ua Urobilinogen - Ua Nitrite - Ua Occult Blood - Laboratory test finding 05/29/2013 [facility] Glucose 99 mg/dL 70-100 51 [place] [address] [phone] Hemoglobin A1c 5.5 % Less than 6.0 52 LDL Cholesterol Direct 74 mg/dL 53 Alt 26 U/L 7-52 54 Creatine Kinase 191 U/L 10-223 55 Surgical 12/12/2012 [facility] S RUN DATE: 56 [place] [address] 12/14/ <SEE [phone] NOTE> CBC No Diff 11/25/2012 [facility] White Blood 4.5 10^3/uL Low 4.8-10 [place] [address] Count .8 [phone] Red Blood Count 5.04 10^6/uL 4.0-5.4 Hemoglobin 15.3 g/dL 14.0-18.0 Hematocrit 45 % 42-52 Mean Corpuscular Volume 89 fL 80-94 Mean Corpuscular Hemoglobin 30 pg 27-31 Mean Corpuscular HGB Conc 34 g/dL 31-36 Red Cell Distribution Width 13 % 10.5-15 Platelet Count 179 10^3/uL 150-450 Mean Platelet Volume 8 um3 7.4-10.4 Comp Metabolic Panel 11/25/2012 [facility] Sodium 137 mmol/L 133-145 [place], [place] [address] [phone] Potassium 4.1 mmol/L 3.5-5.0 Chloride 102 mmol/L 101-111 Co2 Carbon Dioxide 30.0 mmol/L 22-32 Anion Gap 5.0 mmol/L 2-11 Glucose 93 mg/dL 70-100 Blood Urea Nitrogen 19 mg/dL 6-24 Creatinine 1.10 mg/dL 0.50-1.40 BUN/Creatinine Ratio 17.3 8-20 Calcium 9.1 mg/dL 8.1-9.9 Total Protein 6.9 g/dL 6.2-8.1 Albumin 3.8 g/dL 3.6-5.4 Globulin 3.1 g/dL 2-4 Albumin/Globulin Ratio 1.2 1-3 Total Bilirubin 0.7 mg/dL 0.4-1.5 Alkaline Phosphatase 59 U/L 30-110 Alt 26 U/L 14-54 Ast 30 U/L 12-42 Egfr Non- 69.8 >60 Egfr 89.7 >60 57 Lipid Profile 11/25/2012 [facility] Triglycerides 62 mg/dL 40 -200 (Trig/Chol/HDL) [place] [address] [phone] Cholesterol 162 mg/dL Less than 200 HDL Cholesterol 35 mg/dL Low 40-60 58 Cholesterol/HDL Ratio 4.6 Average High 1-4.44 LDL Cholesterol 114.6 High Less Than 100 59 Laboratory test 11/25/2012 [facility] Hemoglobin A1c 5.6 % Less 60 [place] [address] than 6.0 [phone] Urine 11/25/2012 [facility] Ur Microalbumin < 2 mg/L 61 [place] [address] (mg/L) Random [phone] Urine Creatinine 106.7 mg/dL Urine Microalbumin/Creatinine 1.9 Less Than 31 Lipid Profile 07/07/2012 [facility] Triglycerides 29 mg/dL Low 40-200 (Trig/Chol/HDL) [place] [address] [phone] Cholesterol 135 mg/dL Less than 200 HDL Cholesterol 36 mg/dL Low 40-60 62 Cholesterol/HDL Ratio 3.8 Average 1-4.44 LDL Cholesterol 93.2 mg/dL Less Than 100 63 Vitamin D, 25 07/07/2012 [facility] 25-Hydroxy Vitamin <4.0 ng/ [place] [address] D2 [phone] 25-Hydroxy Vitamin D3 58 ng/mL 25-Hydroxy Vitamin D Total 58 ng/mL 25-80 64 Laboratory test 07/07/2012 [facility] CRP High 0.9 mg/L 65 [place] [address] Sensitivity [phone] Basic Metabolic 07/07/2012 [facility] Sodium 139 mmol/L 133- 14 [place] [address] [phone] Potassium 4.2 mmol/L 3.5-5.0 Chloride 103 mmol/L 101-111 Co2 Carbon Dioxide 32.0 mmol/L 22-32 Anion Gap 4.0 mmol/L 2-11 Glucose 102 mg/dL High 70-100 Blood Urea Nitrogen 16 mg/dL 6-24 Creatinine 1.10 mg/dL 0.50-1.40 BUN/Creatinine Ratio 14.5 8-20 Calcium 9.3 mg/dL 8.1-9.9 Egfr Non- 70.0 >60 Egfr 90.1 >60 66 Laboratory test 06/01/2012 [facility] Hemoglobin A1c 5.3 Low 6-[address] [place] [place] [address] [phone] Laboratory test 05/15/2012 [facility] CPK 108 finding Troponin I <0.01 CBC No Diff 05/15/2012 [facility] Hematocrit 43 Hemoglobin 14.6 Platelet Count 152 RBC Red Blood Count 4.9 RDW 12.5 White Blood Count 5.5 MCV (Corpuscular Volume) 88 Ua Routine 05/15/2012 [facility] Ua Specific [place] 1.015 Ua PH 6.0 Ua Color STRAW Ua Appera CLEAR Ua WBC NEGATIVE Ua Protein NEGATIVE Ua Glucose NEGATIVE Ua Ketones NEGATIVE Ua Bilirubin NEGATIVE Ua Urobilinogen 0.2 Ua Nitrite NEGATIVE Ua Occult Blood NEGATIVE Protime W/ Inr 05/15/2012 [facility] Prothrombin Time 13.2 International Normalized Ratio 1.3 Amylase & Lipase 05/15/2012 [facility] Amylase 56 Lipase 19 Laboratory test finding 05/15/2012 [facility] Protein Total 6.3 Albumin 4.0 Bilirubin Total 0.5 Bilirubin Direct 0.2 Alkaline Phosphatase 59 Ast & Alt 05/15/2012 [facility] Ast - Sgot 25 Alt - SGPT 25 Laboratory test 12/04/2011 [facility] Insulin 7.2 mcIU/mL 2.6 - 24.9 67 [place] [address] [phone] Laboratory test 12/04/2011 [facility] Glucose 107 mg/dL High 70-100 [place] [address] [phone] LDL Direct 70 mg/dL Less Than 100 68 CPK (Creatine Kinase) 144 U/L 0-200 Liver Function 12/04/2011 [facility] Total Protein 6.5 GM/DL 6.2-8.1 [place] [address] [phone] Albumin 3.7 GM/DL 3.6-5.4 Globulin 2.8 GM/DL 2-4 Albumin/Globulin Ratio 1.3 1-3 Bilirubin Total 0.8 mg/dL 0.4-1.5 69 Bilirubin Direct 0.1 mg/dL 0.1-0.5 Indirect Bilirubin 0.7 mg/dL 0.3-1.0 70 Alkaline Phosphatase 62 U/L 39-117 Alt (SGPT) 39 U/L 17-63 Ast (Sgot) 32 U/L 12-42 Laboratory test 12/04/2011 [facility] Hemoglobin A1c 5.5 % Less Than 71 [place] [address] 6.0 [phone] Comp Metabolic 06/12/2011 [facility] Sodium 137 135-145 [place] [address] mmol/L [phone] Potassium 4.6 mmol/L 3.5-5.0 Chloride 103 mmol/L 101-111 Co2 (Carbon Dioxide) 30.0 mmol/L 22-32 Anion Gap 4.0 mmol/L 2-11 72 Glucose 103 mg/dL High 70-100 BUN 17 mg/dL 6-24 Creatinine 1.1 mg/dL 0.50-1.40 One Over Creatinine 0.90 BUN/Creatinine Ratio 15.5 8-20 Calcium 9.1 mg/dL 8.1-9.9 Total Protein 6.7 GM/DL 6.2-8.1 Albumin 3.8 GM/DL 3.6-5.4 Globulin 2.9 GM/DL 2-4 Albumin/Globulin Ratio 1.3 1-3 Bilirubin Total 0.9 mg/dL 0.4-1.5 73 Alkaline Phosphatase 47 U/L 39-117 Alt (SGPT) 44 U/L 17-63 Ast (Sgot) 33 U/L 12-42 eGFR Non- 70.3 > 60 eGFR 90.4 > 60 74 Laboratory test 06/12/2011 [facility] CPK (Creatine 192 U/L 0 -200 [place] [address] Kinase) [phone] Hemoglobin A1c 6.0 % Less Than 6.0 75 CBC No Diff 06/05/2011 [facility] White Blood 4.6 CUMM Low 4.8 -10.8 [place] [address] Count [phone] Red Cell Count 4.73 CUMM 4.6-6.2 Hemoglobin 14.5 g/dL 14.0-18.0 Hematocrit 43 % 42-52 Mean Corpuscular Volume 90 um3 80-94 Mean Corpuscular Hemoglob 31 pg 27-31 Mean Corpuscular HGB Cone 34 g/dL 32-36 Redcell Distribution WDTH 13 % 10.5-15 Platelet Count 174 CUMM 150-450 Mean Platelet Volume 8.6 um3 7.4-10.4 Comp Metabolic Panel 06/05/2011 [facility] Sodium 139 mmol/L 135-145 [place], [place] [address] [phone] Potassium 4.2 mmol/L 3.5-5.0 Chloride 106 mmol/L 101-111 Co2 (Carbon Dioxide) 28.0 mmol/L 22-32 Anion Gap 5.0 mmol/L 2-11 76 Glucose 108 mg/dL High 70-100 BUN 15 mg/dL 6-24 Creatinine 1.1 mg/dL 0.50-1.40 One Over Creatinine 0.90 BUN/Creatinine Ratio 13.6 8-20 Calcium 8.8 mg/dL 8.1-9.9 Total Protein 6.7 GM/DL 6.2-8.1 Albumin 3.9 GM/DL 3.6-5.4 Globulin 2.8 GM/DL 2-4 Albumin/Globulin Ratio 1.4 1-3 Bilirubin Total 0.9 mg/dL 0.4-1.5 77 Alkaline Phosphatase 53 U/L 39-117 Alt (SGPT) 26 U/L 17-63 Ast (Sgot) 27 U/L 12-42 eGFR Non- 70.3 > 60 eGFR 90.4 > 60 78 Laboratory test 06/05/2011 [facility] CPK (Creatine 263 U/L High 0-200 [place] [address] Kinase) [phone] Lipid Profile 06/05/2011 [facility] Triglyceride 27 mg/dL Low 40-200 (Trig/Chol/HDL) [place] [address] [phone] Cholesterol 102 mg/dL Less Than 200 79 High Density Lipoprotein 32 mg/dL Low 40-60 80 Cholesterol/HDL Ratio 3.19 AVERAGE 1-4.97 Low Density Lipoprotein 65 mg/dL Less Than 100 81 Ua Routine 06/18/2010 [facility] Ua Specific [place] 1.[address] [place] [address] [phone] Ua PH 7.0 Ua Color YELLOW Ua Appera CLEAR Ua WBC NEGATIVE Ua Protein NEGATIVE Ua Glucose NEGATIVE Ua Ketones NEGATIVE Ua Bilirubin NEGATIVE Ua Urobilinogen 0.2 Ua Nitrite NEGATIVE Ua Occult Blood NEGATIVE Laboratory test 06/09/2010 [facility] Glucose 93 mg/dL 70- 100 [place] [address] [phone] Lipid Profile 06/09/2010 [facility] Triglyceride 45 mg/dL 40- 200 (Trig/Chol/HDL) [place] [address] [phone] Cholesterol 115 mg/dL Less Than 200 82 High Density Lipoprotein 34 mg/dL Low 40-60 83 Cholesterol/HDL Ratio 3.38 AVERAGE 1-4.97 Low Density Lipoprotein 72 mg/dL Less Than 100 84 Laboratory test finding 06/09/2010 [facility] Alt (SGPT) 26 U/L 17-63 [place], [place] [address] [phone] Hemoglobin A1c 5.7 % Less Than 6.0 85 Order 04/03/2010 [facility] Echocardiogram Freq PVC, [address], [address] [place] [address] [phone] Order 03/19/2010 [facility] Echocardiogram, Normal [address], [address] [place] [place] [address] [phone] Order 03/18/2010 [facility] 24 Hour Holter [address], [place] [address] Monitor frequent PVC [phone] Order 03/13/2010 [facility] EKG SB, [place] [address] [phone] Hemogram 02/14/2010 [facility] White Blood Count 5.6 CUMM 4.8 -10 [place] [address] .8 [phone] Red Cell Count 4.94 CUMM 4.6-6.2 Hemoglobin 14.9 g/dL 14.0-18.0 Hematocrit 43 % 42-52 Mean Corpuscular Volume 87 um3 80-94 Mean Corpuscular Hemoglob 30 pg 27-31 Mean Corpuscular HGB Cone 34 g/dL 32-36 Platelet Count 222 CUMM 150-450 Laboratory test 02/14/2010 [facility] PSA Screening 0.83 NG/ML 0-4 86 finding [place], [place] [address]89 [phone] Lipid Profile 02/14/2010 [facility] Triglyceride 78 mg/dL 40- 200 (Trig/Chol/HDL) [place] [address] [phone] Cholesterol 210 mg/dL High Less Than 200 87 High Density Lipoprotein 33 mg/dL Low 40-60 88 Cholesterol/HDL Ratio 6.36 AVERAGE High 1-4.97 Low Density Lipoprotein 161 mg/dL High Less Than 100 89 Basic Metabolic 02/14/2010 [facility] Sodium 134 mmol/L Low 135-145 [place] [address] [phone] Potassium 4.7 mmol/L 3.5-5.0 Chloride 98 mmol/L Low 101-111 Co2 (Carbon Dioxide) 29.0 mmol/L 22-32 Anion Gap 7.0 mmol/L 2-11 90 Glucose 99 mg/dL 70-100 91 BUN 15 mg/dL 6-24 Creatinine 1.00 mg/dL 0.50-1.40 One Over Creatinine 1.00 BUN/Creatinine Ratio 15.0 8-20 Calcium 8.8 mg/dL 8.1-9.9 eGFR Non- 83.7 > 60 eGFR 101.3 > 60 92 Surgical 12/09/2009 [facility] Surgical [address] [place] [address] Pathology <SEE NOTE> [phone] Order 12/09/2009 [facility] Colonoscopy Tubulovillous [address] adenom [place], [place] [address] [phone] Laboratory 10/17/2008 [facility] PSA Total 0.83 0.0 test finding 1-4 .00 Lipid Panel 10/17/2008 [facility] Cholesterol 173 118 Total -20 0 Cholesterol/HDL Ratio 4.8 High Density Lipoprotein 36 Low 40-67 LDL/HDL Risk Ratio 3.4 LDL Low Density Lipoprotein 122 88-162 Triglycerides 76 10-150 CMP 10/17/2008 [facility] Albumin 3.6 3.4-5.0 Alt - SGPT 35 30-65 Calcium 8.7 8.5-10.1 Carbon Dioxide 31.4 21.0-32.0 Chloride 103 98-107 Creatinine W/O Egfr 1.2 0.6-1.3 Glucose 104 70-110 Alkaline Phosphatase 71 50-136 Potassium 4.0 3.5-5.1 Protein Total 7.0 6.4-8.2 Sodium 140 136-145 Ast - Sgot 26 15-37 BUN - Urea Nitrogen 18 7-18 1 Because ethnic data is not always readily available, this report includes an eGFR for both -Americans and non- Americans. The National Kidney Disease Education Program (NKDEP) does not endorse the use of the MDRD equation for patients that are not between the ages of 18 and 70, are , have extremes of body size, muscle mass, or nutritional status, or are non- or non-. According to the National Kidney Foundation, irrespective of diagnosis, the stage of the disease is based on the level of kidney function: Stage Description GFR(mL/min/1.73 m(2)) 1 Kidney damage with normal or decreased GFR 90 2 Kidney damage with mild decrease in GFR 60-89 3 Moderate decrease in GFR 30-59 4 Severe decrease in GFR 15-29 5 Kidney failure <15 (or dialysis) 2 Therapeutic target for the treatment of diabetes mellitus patients is <7% HBA1C, and in selective patients <6.0%. Please refer to [place] [employer] diabetic care guidelines for further information. 3 Desirable: <150 Borderline High: 150-199 High: 200-499 Very High: >500 4 Desirable: <200 Borderline High: 200-239 High: >239 5 Low: <40 Desirable: 40-60 High: >60 6 Desirable: <100 Near Optimal: 100-129 Borderline High: 130-159 High: 160-189 Very High: >189 7 Desirable: <150 Borderline High: 150-199 High: 200-499 Very High: >500 8 Desirable: <200 Borderline High: 200-239 High: >239 9 Low: <40 Desirable: 40-60 High: >60 10 Desirable: <100 Near Optimal: 100-129 Borderline High: 130-159 High: 160-189 Very High: >189 11 FASTING 12 FASTING 13 Therapeutic target for the treatment of diabetes mellitus patients is <7% HBA1C, and in selective patients <6.0%. Please refer to [place] [employer] diabetic care guidelines for further information. 14 Because ethnic data is not always readily available, this report includes an eGFR for both -Americans and non- Americans. The National Kidney Disease Education Program (NKDEP) does not endorse the use of the MDRD equation for patients that are not between the ages of 18 and 70, are , have extremes of body size, muscle mass, or nutritional status, or are non- or non-. According to the National Kidney Foundation, irrespective of diagnosis, the stage of the disease is based on the level of kidney function: Stage Description GFR(mL/min/1.73 m(2)) 1 Kidney damage with normal or decreased GFR 90 2 Kidney damage with mild decrease in GFR 60-89 3 Moderate decrease in GFR 30-59 4 Severe decrease in GFR 15-29 5 Kidney failure <15 (or dialysis) 15 [facility] Severe Sepsis and Septic Shock Management Bundle Measure requires all lactic acids initially measuring >2.0 mmol/L be repeated. 16 >100 to <200 pg/mL: likely compensated congestive heart failure (CHF) 200 to 400 pg/mL: likely moderate CHF >400 pg/mL: likely moderate to severe CHF 17 Please note: The following may produce a false positive D Dimer test: - Rheumatoid factor greater than 60 IU/ml - Plasma hemoglobin greater than 0.05 gm/dl - Bilirubin greater than 50 mg/dl - Lipids greater than 1000 mg/dl - FDP greater than 20 ug/ml 18 Because ethnic data is not always readily available, this report includes an eGFR for both -Americans and non- Americans. The National Kidney Disease Education Program (NKDEP) does not endorse the use of the MDRD equation for patients that are not between the ages of 18 and 70, are , have extremes of body size, muscle mass, or nutritional status, or are non- or non-. According to the National Kidney Foundation, irrespective of diagnosis, the stage of the disease is based on the level of kidney function: Stage Description GFR(mL/min/1.73 m(2)) 1 Kidney damage with normal or decreased GFR 90 2 Kidney damage with mild decrease in GFR 60-89 3 Moderate decrease in GFR 30-59 4 Severe decrease in GFR 15-29 5 Kidney failure <15 (or dialysis) 19 Desirable: <150 Borderline High: 150-199 High: 200-499 Very High: >500 20 Desirable: <200 Borderline High: 200-239 High: >239 21 Low: <40 Desirable: 40-60 High: >60 22 Desirable: <100 Near Optimal: 100-129 Borderline High: 130-159 High: 160-189 Very High: >189 23 Because ethnic data is not always readily available, this report includes an eGFR for both -Americans and non- Americans. The National Kidney Disease Education Program (NKDEP) does not endorse the use of the MDRD equation for patients that are not between the ages of 18 and 70, are , have extremes of body size, muscle mass, or nutritional status, or are non- or non-. According to the National Kidney Foundation, irrespective of diagnosis, the stage of the disease is based on the level of kidney function: Stage Description GFR(mL/min/1.73 m(2)) 1 Kidney damage with normal or decreased GFR 90 2 Kidney damage with mild decrease in GFR 60-89 3 Moderate decrease in GFR 30-59 4 Severe decrease in GFR 15-29 5 Kidney failure <15 (or dialysis) 24 Desirable <150 Borderline high 150-199 High 200-499 Very High >500 25 Desirable <200 Borderline high 200-239 High >239 26 Low <40 Desirable: 40-60 High: >60 27 Desirable: <100 mg/dL Near Optimal: 100-129 mg/dL Borderline High: 130-159 mg/dL High: 160-189 mg/dL Very High: >189 mg/dL 28 Therapeutic target for the treatment of diabetes Mellitus patients is <7% HBA1C, and in selective patients <6.0%.Please refer to [place] [employer] Diabetic care guidelines for further information. 29 Serum levels of PSA measured using the [employer] DXI Hybritech immunoassay should not be interpreted as absolute evidence of the presence or absence of disease. The PSA value should be used in conjunction with other pertinent clinical diagnostic procedures. The values obtained with different assay methods or kits cannot be used interchangeably. 30 [id number] 31 SEE RESULT BELOW Name: ROBERTH OKEEFE : [address]: Gurdeep Calzada MD Acct: [id number] Unit: [id number] AGE: 55 Location: [facility] Re12/11/15 SEX: M Status: REG REF SPEC: [id number] OSVALDO: 12/11/15- SUBM DR: Gurdeep Calzada MD REQ: [id number] RECD: 12/11/15 STATUS: LEYLA RODGERS DR: Chandu Wilson MD _ ORDERED: LEVEL IV/3 COMMENTS: [id number] FINAL DIAGNOSIS 1. Ileocecal valve, biopsy: -- Small intestinal mucosa with superficial vascular congestion and mild chronic inflammation. -- No evidence of viral cytopathic effect or parasites. -- No evidence of chronic or active colitis. 2. Colon, sigmoid, biopsy: -- Tubular adenoma. -- No high grade dysplasia or malignancy. 3. Colon, sigmoid, distal, biopsy: -- Tubular adenoma. -- No high grade dysplasia or malignancy. CLINICAL HISTORY Usual bowel habit - every day without laxatives POST-OPERATIVE DIAGNOSIS Colonoscopy to cecum, fair prep - right colon spiral tight erythema. Conclusions/Plan: Malrotation right colon; sigmoid polyp GROSS DESCRIPTION 1. The specimen is received in formalin labeled, Biopsy Ileocecal Erythema , and consists of two boyd irregular soft tissue fragments measuring 0.3 x 0.3 x 0.2 cm and 0.4 x 0.2 x 0.2 cm, which are submitted entirely in one cassette. 2. The specimen is received in formalin labeled, Biopsy Sigmoid Thickened Fold, and consists of a 0.8 x 0.5 x 0.1 cm aggregate of boyd irregular soft tissue fragments, which is CONTINUED ON NEXT PAGE * ML=Testing performed at Main Lab DEPARTMENT OF PATHOLOGY, [address] [place] [address] Jaylen Lin M.D. Director [facility] # [id number] RUN DATE: 12/13/15 [facility] LAB LIVE PAGE 2 Patient: ROBERTH OKEEFE [id number] (Continued) GROSS DESCRIPTION (Continued) GROSS DESCRIPTION (Continued) submitted entirely in one cassette. 3. The specimen is received in formalin labeled, Biopsy Distal Sigmoid Polyp, and consists of two boyd irregular to polypoid soft tissue fragments measuring 0.3 x 0.2 x 0.1 cm and 0.3 x 0.3 x 0.2 cm, which are submitted entirely in one cassette. Signed (signature on file) Luz Dunham MD 1507 END OF REPORT * ML=Testing performed at Main Lab DEPARTMENT OF PATHOLOGY, [address] [place] [address] Jaylen Lin M.D. Director [facility] # [id number] 32 Because ethnic data is not always readily available, this report includes an eGFR for both -Americans and non- Americans. The National Kidney Disease Education Program (NKDEP) does not endorse the use of the MDRD equation for patients that are not between the ages of 18 and 70, are , have extremes of body size, muscle mass, or nutritional status, or are non- or non-. According to the National Kidney Foundation, irrespective of diagnosis, the stage of the disease is based on the level of kidney function: Stage Description GFR(mL/min/1.73 m(2)) 1 Kidney damage with normal or decreased GFR 90 2 Kidney damage with mild decrease in GFR 60-89 3 Moderate decrease in GFR 30-59 4 Severe decrease in GFR 15-29 5 Kidney failure <15 (or dialysis) 33 Desirable <150 Borderline high 150-199 High 200-499 Very High >500 34 Desirable <200 Borderline high 200-239 High >239 35 Low <40 Desirable: 40-60 High: >60 36 Desirable: <100 mg/dL Near Optimal: 100-129 mg/dL Borderline High: 130-159 mg/dL High: 160-189 mg/dL Very High: >189 mg/dL 37 FASTING 38 Low risk: <1.00 Average risk: 1.00-3.00 High risk: >3.00 39 Desirable <150 Borderline high 150-199 High 200-499 Very High >500 40 Desirable <200 Borderline high 200-239 High >239 41 Low <40 Desirable: 40-60 High: >60 42 Desirable: <100 mg/dL Near Optimal: 100-129 mg/dL Borderline High: 130-159 mg/dL High: 160-189 mg/dL Very High: >189 mg/dL 43 Because ethnic data is not always readily available, this report includes an eGFR for both -Americans and non- Americans. The National Kidney Disease Education Program (NKDEP) does not endorse the use of the MDRD equation for patients that are not between the ages of 18 and 70, are , have extremes of body size, muscle mass, or nutritional status, or are non- or non-. According to the National Kidney Foundation, irrespective of diagnosis, the stage of the disease is based on the level of kidney function: Stage Description GFR(mL/min/1.73 m(2)) 1 Kidney damage with normal or decreased GFR 90 2 Kidney damage with mild decrease in GFR 60-89 3 Moderate decrease in GFR 30-59 4 Severe decrease in GFR 15-29 5 Kidney failure <15 (or dialysis) 44 Therapeutic target for the treatment of diabetes Mellitus patients is <7% HBA1C, and in selective patients <6.0%.Please refer to [place] [employer] Diabetic care guidelines for further information. 45 Potassium reference range changed effective 01/14/14 46 Because ethnic data is not always readily available, this report includes an eGFR for both -Americans and non- Americans. The National Kidney Disease Education Program (NKDEP) does not endorse the use of the MDRD equation for patients that are not between the ages of 18 and 70, are , have extremes of body size, muscle mass, or nutritional status, or are non- or non-. According to the National Kidney Foundation, irrespective of diagnosis, the stage of the disease is based on the level of kidney function: Stage Description GFR(mL/min/1.73 m(2)) 1 Kidney damage with normal or decreased GFR 90 2 Kidney damage with mild decrease in GFR 60-89 3 Moderate decrease in GFR 30-59 4 Severe decrease in GFR 15-29 5 Kidney failure <15 (or dialysis) 47 Desirable <150 Borderline high 150-199 High 200-499 Very High >500 48 Desirable <200 Borderline high 200-239 High >239 49 Low <40 Desirable: 40-60 High: >60 50 Desirable <100 Near Optimal 100-129 Borderline high 130-159 High 160-189 Very High >189 51 PT IS FASTING 52 Therapeutic target for the treatment of diabetes Mellitus patients is <7% HBA1C, and in selective patients <6.0%.Please refer to [place] [employer] Diabetic care guidelines for further information. 53 Desirable <100 Near Optimal 100-129 Borderline high 130-159 High 160-189 Very High >189 54 PT IS FASTING 55 PT IS FASTING 56 RUN DATE: 12/14/12 [facility] LAB LIVE PAGE 1 RUN TIME: 1314 [address], [place] [address] Specimen Inquiry Name: ROBERTH OKEEFE : [address]: Gurdeep Calzada MD Acct: [id number] Unit: [id number] AGE: 52 Location: [facility] Re12/12/12 SEX: M Status: REG REF SPEC: [id number] OSVALDO: 12/12/12- [facility] DR: Gurdeep Calzada MD REQ: [id number] RECD: 12/12/12 STATUS: LEYLA RODGERS DR: Chandu Wilson MD _ ORDERED: LEVEL IV/2 FINAL DIAGNOSIS 1) Colon, sigmoid at 30 cm., biopsy: A. Tubular adenoma. B. No high grade dysplasia or malignancy. 2) Colon, rectum at 10 cm., biopsy: A. Tubular adenoma. B. No high grade dysplasia or malignancy. CLINICAL HISTORY Screening colonoscopy. History of polyps. Usual bowel habits - 1-2 times a day.Dehydrated - Strong - ER POST-OPERATIVE DIAGNOSIS Screening colonoscopy to cecum with ease. Two left colon polyps. GROSS DESCRIPTION 1) The specimen is received in formalin labeled Roberth Okeefe, Nodule in Sigmoid Colon at 30 cm. and consists of a 0.3 x 0.3 x 0.2 cm. boyd-white portion of tissue. Submitted entirely, one cassette. 2) The specimen is received in formalin labeled Roberth Okeefe, Nodule in Rectum at 10 cm. and consists of a 0.4 x 0.4 x 0.4 cm. boyd-white portion of tissue. Submitted entirely, one cassette. CONTINUED ON NEXT PAGE * ML=Testing performed at Main Lab DEPARTMENT OF PATHOLOGY, [facility] [place] [address] Jaylen Lin M.D. Director [facility] Permit #[id number] RUN DATE: 12/14/12 [facility] LAB LIVE PAGE 2 RUN TIME: 1318 [facility] [employer] [place], [place] [address] Specimen Inquiry Patient: ROBERTH OKEEFE [id number] (Continued) GROSS DESCRIPTION (Continued) Signed (signature on file) Luz Dunham MD 04/27 1319 END OF REPORT * ML=Testing performed at Main Lab DEPARTMENT OF PATHOLOGY, [address] [place] [address] Jaylen Lin M.D. Director [facility] Permit #[id number] 57 Because ethnic data is not always readily available, this report includes an eGFR for both -Americans and non- Americans. The National Kidney Disease Education Program (NKDEP) does not endorse the use of the MDRD equation for patients that are not between the ages of 18 and 70, are , have extremes of body size, muscle mass, or nutritional status, or are non- or non-. According to the National Kidney Foundation, irrespective of diagnosis, the stage of the disease is based on the level of kidney function: Stage Description GFR(mL/min/1.73 m(2)) 1 Kidney damage with normal or decreased GFR 90 2 Kidney damage with mild decrease in GFR 60-89 3 Moderate decrease in GFR 30-59 4 Severe decrease in GFR 15-29 5 Kidney failure <15 (or dialysis) 58 HDL Interpretation: Undesirable: High Risk: Less than 40 mg/dL Desirable: Low Risk: Greater than 60 mg/dL 59 LDL Interpretation: Low Risk Optimal Level: LDL Less than 100 mg/dL Near or Above Optimal: LDL 100-129 mg/dL Borderline High Risk: LDL 130-159 mg/dL High Risk: LDL 160-189 mg/dL Very High Risk: LDL Greater than 189 mg/dL 60 Therapeutic target for the treatment of diabetes Mellitus patients is <7% HBA1C, and in selective patients <6.0%.Please refer to [place] [employer] Diabetic care guidelines for further information. 61 Microalbuminuria in a random sample is defined as: Microalbumin/Creatinine ratio of 30-299 ug/mg. 62 HDL Interpretation: Undesirable: High Risk: Less than 40 MG/DL Desirable: Low Risk: Greater than 60 MG/DL 63 LDL Interpretation: Low Risk Optimal Level: LDL Less than 100 MG/DL Near or Above Optimal: LDL 100-129 MG/DL Borderline High Risk: LDL 130-159 MG/DL High Risk: LDL 160-189 MG/DL Very High Risk: LDL Greater than 189 MG/DL 64 -- REFERENCE VALUE -- 25-HYDROXY D TOTAL (D2+D3) Optimum levels in the normal population are 25-80 Test Performed by: [address] [address] Profiling Machine Setup Operator: Gonsalo Payan III, M.D. 65 Less Than 1.0......Low Risk of Cardiovascular Disease 1.0-3.0............Medium Risk (<2 Fold Increase) Greater Than 3.0...High Risk (Approximately 2-Fold Increase) 66 Because ethnic data is not always readily available, this report includes an eGFR for both -Americans and non- Americans. The National Kidney Disease Education Program (NKDEP) does not endorse the use of the MDRD equation for patients that are not between the ages of 18 and 70, are , have extremes of body size, muscle mass, or nutritional status, or are non- or non-. According to the National Kidney Foundation, irrespective of diagnosis, the stage of the disease is based on the level of kidney function: Stage Description GFR(mL/min/1.73 m(2)) 1 Kidney damage with normal or decreased GFR 90 2 Kidney damage with mild decrease in GFR 60-89 3 Moderate decrease in GFR 30-59 4 Severe decrease in GFR 15-29 5 Kidney failure <15 (or dialysis) 67 Test Performed by: [address] [address] Profiling Machine Setup Operator: Gonsalo Payan III, M.D. 68 LDL INTERPRETATION: Low Risk Optimal Level: LDL Less than 100 MG/DL Near or Above Optimal: LDL 100-129 MG/DL Borderline High Risk: LDL 130-159 MG/DL High Risk: LDL 160-189 MG/DL Very High Risk: LDL Greater than 189 MG/DL 69 A metabolite of Naproxen, O-desmethylnaproxen, has been shown to interfere with the Jeneduardik-Alexandro method for measuring total bilirubin. Samples from patients who have taken Naproxen have shown spurious elevation in total bilirubin levels. 70 Please note updated reference range, effective 10/03/09 71 THERAPEUTIC TARGET FOR THE TREATMENT OF DIABETES MELLITUS PATIENTS IS <7% HBA1C, AND IN SELECTIVE PATIENTS <6.0%. PLEASE REFER TO [employer] DIABETIC CARE GUIDELINES FOR FURTHER INFORMATION. 72 Anion gap measurement may be of limited value in the presence of any alkalosis, especially in a combined acid base disorder. . 73 A metabolite of Naproxen, O-desmethylnaproxen, has been shown to interfere with the Jendrassik-Alexandro method for measuring total bilirubin. Samples from patients who have taken Naproxen have shown spurious elevation in total bilirubin levels. 74 Because ethnic data is not always readily available, this report includes an eGFR for both -Americans and non- Americans. The National Kidney Disease Education Program (NKDEP) does not endorse the use of the MDRD equation for patients that are not between the ages of 18 and 70, are , have extremes of body size, muscle mass, or nutritional status, or are non- or non-. According to the National Kidney Foundation, irrespective of diagnosis, the stage of the disease is based on the level of kidney function: Stage Description GFR(mL/min/1.73 m(2)) 1 Kidney damage with normal or decreased GFR 90 2 Kidney damage with mild decrease in GFR 60-89 3 Moderate decrease in GFR 30-59 4 Severe decrease in GFR 15-29 5 Kidney failure <15 (or dialysis) 75 THERAPEUTIC TARGET FOR THE TREATMENT OF DIABETES MELLITUS PATIENTS IS <7% HBA1C, AND IN SELECTIVE PATIENTS <6.0%. PLEASE REFER TO [employer] DIABETIC CARE GUIDELINES FOR FURTHER INFORMATION. 76 Anion gap measurement may be of limited value in the presence of any alkalosis, especially in a combined acid base disorder. . 77 A metabolite of Naproxen, O-desmethylnaproxen, has been shown to interfere with the Jendrassik-Alexandro method for measuring total bilirubin. Samples from patients who have taken Naproxen have shown spurious elevation in total bilirubin levels. 78 Because ethnic data is not always readily available, this report includes an eGFR for both -Americans and non- Americans. The National Kidney Disease Education Program (NKDEP) does not endorse the use of the MDRD equation for patients that are not between the ages of 18 and 70, are , have extremes of body size, muscle mass, or nutritional status, or are non- or non-. According to the National Kidney Foundation, irrespective of diagnosis, the stage of the disease is based on the level of kidney function: Stage Description GFR(mL/min/1.73 m(2)) 1 Kidney damage with normal or decreased GFR 90 2 Kidney damage with mild decrease in GFR 60-89 3 Moderate decrease in GFR 30-59 4 Severe decrease in GFR 15-29 5 Kidney failure <15 (or dialysis) 79 CHOLESTEROL INTERPRETATION: Desirable: Less than 200 MG/DL Borderline-High Risk: 200-239 MG/DL High-Risk: 240 MG/DL and over 80 HDL INTERPRETATION: Undesirable: High Risk: Less than 40 MG/DL Desirable: Low Risk: Greater than 60 MG/DL 81 LDL INTERPRETATION: Low Risk Optimal Level: LDL Less than 100 MG/DL Near or Above Optimal: LDL 100-129 MG/DL Borderline High Risk: LDL 130-159 MG/DL High Risk: LDL 160-189 MG/DL Very High Risk: LDL Greater than 189 MG/DL 82 CHOLESTEROL INTERPRETATION: Desirable: Less than 200 MG/DL Borderline-High Risk: 200-239 MG/DL High-Risk: 240 MG/DL and over 83 HDL INTERPRETATION: Undesirable: High Risk: Less than 40 MG/DL Desirable: Low Risk: Greater than 60 MG/DL 84 LDL INTERPRETATION: Low Risk Optimal Level: LDL Less than 100 MG/DL Near or Above Optimal: LDL 100-129 MG/DL Borderline High Risk: LDL 130-159 MG/DL High Risk: LDL 160-189 MG/DL Very High Risk: LDL Greater than 189 MG/DL 85 THERAPEUTIC TARGET FOR THE TREATMENT OF DIABETES MELLITUS PATIENTS IS <7% HBA1C, AND IN SELECTIVE PATIENTS <6.0%. PLEASE REFER TO [employer] DIABETIC CARE GUIDELINES FOR FURTHER INFORMATION. 86 * SERUM LEVELS OF PSA MEASURED USING THE CHRISTIE [employer] ACCESS HYBRITECH IMMUNOASSAY SHOULD NOT BE INTERPRETED ABSOLUTE EVIDENCE OF THE PRESENCE OR ABSENCE OF DISEASE. THE PSA VALUE SHOULD BE USED IN CONJUNCTION WITH OTHER PERTINENT CLINICAL DIAGNOSTIC PROCEDURES. 87 CHOLESTEROL INTERPRETATION: Desirable: Less than 200 MG/DL Borderline-High Risk: 200-239 MG/DL High-Risk: 240 MG/DL and over 88 HDL INTERPRETATION: Undesirable: High Risk: Less than 40 MG/DL Desirable: Low Risk: Greater than 60 MG/DL 89 LDL INTERPRETATION: Low Risk Optimal Level: LDL Less than 100 MG/DL Near or Above Optimal: LDL 100-129 MG/DL Borderline High Risk: LDL 130-159 MG/DL High Risk: LDL 160-189 MG/DL Very High Risk: LDL Greater than 189 MG/DL 90 Anion gap measurement may be of limited value in the presence of any alkalosis, especially in a combined acid base disorder. . 91 Note change in reference range as of 11/03/07. The change was based on recommendations from the [place] [employer]. 92 Because ethnic data is not always readily available, this report includes an eGFR for both -Americans and non- Americans. The National Kidney Disease Education Program (NKDEP) does not endorse the use of the MDRD equation for patients that are not between the ages of 18 and 70, are , have extremes of body size, muscle mass, or nutritional status, or are non- or non-. According to the National Kidney Foundation, irrespective of diagnosis, the stage of the disease is based on the level of kidney function: Stage Description GFR(mL/min/1.73 m(2)) 1 Kidney damage with normal or decreased GFR 90 2 Kidney damage with mild decrease in GFR 60-89 3 Moderate decrease in GFR 30-59 4 Severe decrease in GFR 15-29 5 Kidney failure <15 (or dialysis) 93 ---- RUN DATE: 12/11/09 [facility] NMI LIVE PAGE 1 RUN TIME: 1513 Specimen Inquiry RUN USER: INTERFACE -- Name: ROBERTH OKEEFE Status: REG REF Re12/09/09 Age/Sex: 49/M Unit#: [id number] Location: [address] [place] [address]. : 56 -- Specimen: [id number] Spec Date: 12/09/[address]: Gurdeep sagastume MD Spec Type: SURGICAL P Received: 12/10/09 Copies to: Chandu june MD SPECIMEN RECTAL SIGMOID POLYP AT 14 CM HISTORY POST-OP DIAGNOSIS: Colonoscopy to cecum. Sigmoid polyp at 14 cm. CLINICAL INFORMATION: Usual bowel habits 3-5, no blood. No past surgical history. Screening. GROSS DESCRIPTION The specimen is received in formalin labelled Roberth Okeefe, Rectal Sigmoid Polyp at 14 cm., and consists of a polypoid dark fragment of tissue, without a stalk, measuring 1.5 x 1.0 x 1.0 cm. the specimen is bisected and submitted entirely, one cassette. DIAGNOSIS Sigmoid colon at 14 cm., biopsy: A. Tubulovillous adenoma. B. No high grade dysplasia or malignancy. Signed Electronically by: CHASE MOON 12/11/09 1513 -- -- DEPARTMENT OF PATHOLOGY, [address] [place] [address] [facility] Permit #[id number] Jayeln Lin M.D. Director Chase Moon M.D. Technical Artist Dir marisela -- Procedures Date Code Description Status 06/02/2017 03475 Electrocardiogram Complete Completed 12/11/2015 [id number] Colonoscopy Completed 06/13/2012 [id number] Diabetic Retinal Eye Exam Completed 06/18/2010 02527 Visual acuity screening, quantitative, bilateral Completed 03/18/2010 01276 ECG Monitor/Report W/O Superimposition Scanning Completed 03/13/2010 83099 Electrocardiogram Complete Completed 12/09/2009 [id number] Colonoscopy Completed Encounters Type Date Location Provider Dx Diagnosis Office Visit 10/11/2018 Main Office Chandu Wilson, R53.83 Other fatigue 9:00a Office Visit 08/11/2018 Main Office Chandu Wilson Z00.01 Encounter for 4:00p general adult medical exam w abnormal findings Office Visit 01/26/2018 Main Office Chandu Wilson, R73.01 Impaired fasting 10:40a glucose Z82.49 Family hx of ischem heart dis and oth dis of the circ sys R10.30 Lower abdominal pain, unspecified Office Visit 12/22/2017 1:40p Main Office Chandu Rm R10.30 Lower abdominal MD Katie pain, unspecified Office Visit 07/28/2017 10:00a Main Office Chandu Rm Z00.01 Encounter for MD Katie general adult medical exam w abnormal findings Z82.49 Family hx of ischem heart dis and oth dis of the circ sys R73.01 Impaired fasting glucose Office Visit 06/02/2017 2:40p Main Office Chandu Wilson MD R00.2 Palpitations R06.02 Shortness of breath R53.83 Other fatigue R35.1 Nocturia F51.12 Insufficient sleep syndrome Office Visit 05/12/2017 11:40a Main Office Chandu Wilson MD R53.83 Other fatigue R06.02 Shortness of breath R35.1 Nocturia F51.12 Insufficient sleep syndrome Office Visit 08/03/2016 10:00a Main Office Chandu Rm Z00.01 Encounter for MD Katie general adult medical exam w abnormal findings Office Visit 07/31/2015 10:40a Main Office Chandu Rm Z00.01 Encounter for MD Katie general adult medical exam w abnormal findings E78.0 Pure hypercholesterolemia R73.01 Impaired fasting glucose Office Visit 07/26/2014 Main Office Chandu Rm V70.0 Examination General 11:00a MD Katie Medical Routine AT Health Care Facility Office Visit 01/25/2014 Main Office Chandu Rm 272.0 Hypercholesterolemia Pure 3:00p MD Katie 790.21 Impaired Fasting Glucose Office Visit 07/17/2013 Main Office Chandu Rm V70.0 Examination General 2:40p MD Katie Medical Routine AT Health Care Facility Office Visit 06/05/2013 Main Office Chandu Rm 272.0 Hypercholesterolemia Pure 10:00a MD Katie 790.21 Impaired Fasting Glucose Office Visit 12/06/2012 10:00a Main Office Chandu Rm V70.0 Examination General MD Katie Medical Routine AT Health Care Facility 272.0 Hypercholesterolemia Pure 790.21 Impaired Fasting Glucose Office Visit 06/01/2012 10:20a Main Office Chandu Wilson, 780.2 Syncope & Collapse 790.21 Impaired Fasting Glucose 272.0 Hypercholesterolemia Pure V17.3 History Family Ischemic Heart Disease Office Visit 12/03/2011 10:00a Main Office Chandu Wilson, 790.21 Impaired Fasting MD Glucose 272.0 Hypercholesterolemia Pure V17.3 History Family Ischemic Heart Disease 726.13 Partial Tear Of Rotator Cuff V06.1 Lytyhhvhsn-Rpxvnli-Btlwlxec Combined (DTaP) Office Visit 06/02/2011 Main Office Chandu Rm 272.0 Hypercholesterolemia Pure 9:40a MD Katie Office Visit 06/18/2010 Main Office Chandu Rm 272.0 Hypercholesterolemia Pure 10:00a MD Katie 790.21 Impaired Fasting Glucose V17.3 History Family Ischemic Heart Disease V70.0 Examination General Medical Routine AT Health Care Facility Office Visit 03/13/2010 11:00a Main Office Chandu Rm V70.0 Examination General MD Katie Medical Routine AT Health Care Facility V17.3 History Family Ischemic Heart Disease 794.31 Electrocardiogram (ECG) (EKG) Abnormal 427.69 Premature Beats Other 272.0 Hypercholesterolemia Pure 790.21 Impaired Fasting Glucose Office Visit 03/03/2010 Main Office Chandu Rm 272.0 Hypercholesterolemia Pure 10:00a MD Katie 790.21 Impaired Fasting Glucose 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 V17.3 History Family Ischemic Heart Disease Office Visit 12/04/2009 11:00a Main Office Chandu Rm 530.81 Esophageal Reflux MD Katie 784.0 Headache Office Visit 01/09/2009 10:00a Main Office Chandu Rm 726.10 Bursae & Tendon MD Katie Disorders Shoulder Region Unspec Plan of Treatment Future Appointment(s):10/27/2018 3:00 pm - Chandu Wilson MD at Main [facility]/11/2018 - Chandu Wilson, MDR53.83 Other fatigueComments:I suspect that his symptoms are due to working for too long and specially long driving.He looked very comfortable.His exam is benign.His CBC with CRP and ESR is normal.Lyme test will be ordered.Patientadvised to cut back on work hours and improve his sleep.Follow up arranged.AllFollow up:2 weeks for f/u on fatigue.
== END 2018-10-27 22:06 | disposition home or self-care (01) ==
LOC: UCEAST 21:33
DX: R21 Rash and other nonspecific skin eruption (principal)
CPT/HCPCS: 99212; A9270-GY; G0463